=== PATIENT | female | born 1940 | race Caucasian/White ===

== ENCOUNTER → 2024-06-22 14:14 | Outpatient (REF) | payer OTHER, SELFPAY | LOC: RAD 14:14 | PROVIDERS: ATTENDING PHYSICIAN Internal Medicine Cardiovascular Disease; FAMILY PHYSICIAN Family Medicine | DX: I65.29 Occlusion and stenosis of unspecified carotid artery (principal) | CPT/HCPCS: 93880 ==

== ENCOUNTER → 2024-06-27 10:09 | Outpatient (REF) | payer MEDICARE, SELFPAY | LOC: RAD 10:09 | PROVIDERS: ATTENDING PHYSICIAN Psychiatry & Neurology Neurology; FAMILY PHYSICIAN Family Medicine | DX: M54.12 Radiculopathy, cervical region (principal) | CPT/HCPCS: 72050 ==

== ENCOUNTER → 2024-07-07 09:01 | Outpatient (REF) | payer OTHER, SELFPAY | LOC: RCS 09:01 | PROVIDERS: ATTENDING PHYSICIAN Internal Medicine Cardiovascular Disease; FAMILY PHYSICIAN Family Medicine | DX: I25.2 Old myocardial infarction (principal); R94.31 Abnormal electrocardiogram [ECG] [EKG] | CPT/HCPCS: 93306 ==

== ENCOUNTER → 2025-07-04 12:13 | Outpatient (REF) | payer OTHER, SELFPAY | LOC: RCS 12:13 | PROVIDERS: ATTENDING PHYSICIAN Internal Medicine Cardiovascular Disease; FAMILY PHYSICIAN Family Medicine | DX: I47.19 Other supraventricular tachycardia (principal); I48.0 Paroxysmal atrial fibrillation; R94.31 Abnormal electrocardiogram [ECG] [EKG] | CPT/HCPCS: 93306; Q9950 ==

== ENCOUNTER 2025-09-02 18:06 | Emergency (ER) | payer OTHER, SELFPAY ==
[2025-09-02 18:11] VITALS: BP 141/93
[2025-09-02 18:52] VITALS: BP 129/70
[2025-09-02 19:00] VITALS: BP 122/64
--- NOTE | 2025-09-02 19:12 | ED.GENMED ---
History of Present Illness
<Casandra Howell MD, Resident - Last Filed: 09/02/25 22:05>
General
Chief Complaint: Nose Bleed
Source: patient
Time Seen by Provider: 09/02/25 19:05
History of Present Illness
History of Present Illness:
Kesha and 85-year-old female,with PMH of atrial fibrillation,CAD,HTN who presents to the ER accompanied by her and daughter for nosebleed.
She does use xarelto and Aspirin chronically , 2 weeks ago she had profuse bleeding from her left nostril, it was cauterized by ENT about 12 days ago, she has had on and off drops of blood from the nose but this afternoon, blood started pouring out
from her nostrils L>R. She was given a nose clip by one of the nurses in her building and that has helped control the bleeding. Currently she is not bleeding actively and the clip is in place.Recently turned on heat for winter.
Denies any lightheadedness or dizziness
Here for further evaluation
Past History
<Casandra Howell MD, Resident - Last Filed: 09/02/25 22:05>
Past History
ED Past Medical History: Arrthythmia, CAD, HTN and Other (chronic anticoagulant use)
Social History
Alcohol: Occasional
Drug: None
Employment: Retired
Review of Systems
<Casandra Howell MD, Resident - Last Filed: 09/02/25 22:05>
Review of Systems
All Other Systems: ROS reviewed and negative except as documented in HPI and ROS
Phy Exam
<Casandra Howell MD, Resident - Last Filed: 09/02/25 22:05>
General Physical Exam
General Presentation: well appearing and no apparent distress
General age: appears stated age
General Skin: warm and dry
General Habitus: normal
General Mental: alert
General Hydration: appears well hydrated
ENT Exam
ENT Exam: normocephalic and other
Additional ENT: Nasal clip in place
Cardiovascular Exam
Cardiovascular Exam: regular rate/rhythm, no edema, no gallop, no murmur and normal peripheral pulses
Pulmonary Exam
Pulmonary Exam: lungs clear, no respiratory distress, no rales and no rhonchi
Gastrointestinal Exam
Gastrointestinal Exam: normal bowel sounds, non tender and soft
Neurological Exam
Neurological Exam: alert, oriented x3 and no motor deficits
Musculoskeletal Exam
Musculoskeletal Exam: full ROM
Psychiatric Exam
Psychiatric Exam: normal mood/affect
Course
<Casandra Howell MD, Resident - Last Filed: 09/02/25 22:05>
Orders/Labs/Results
Orders:
Orders
09/02/25 19:36
CBC/With Diff [Complete Blood Count/With Diff] Urgent
Comprehensive Metabolic Panel Urgent
PT/INR [Prothrombin Time] Urgent
PTT Urgent
Abnormal Lab Results
09/02/25
19:36
WBC 4.6 L 10^3/uL
(4.8-10.8)
Absolute Lymphs (auto) 1.0 L 10^3/uL
(1.2-3.4)
Immature Gran % 0.9 H %
(0-0.5)
Monocytes % 10.8 H %
(1.7-9.3)
PT 28.2 H Sec
(11.4-14.6)
APTT 41.2 H Sec
(23.4-35.0)
BUN 21 H mg/dl
(7-17)
Glucose 103 H mg/dl
(70-99)
Total Protein 5.8 L g/dl
(6.3-8.2)
09/02/25 19:36
09/02/25 19:36
Vital Signs
Initial and Last Documented VS:
Initial Vital Signs
Temp Pulse Resp BP Pulse Ox
98.2 F 75 16 141/93 100
09/02/25 18:11 09/02/25 18:11 09/02/25 18:11 09/02/25 18:11 09/02/25 18:11
Last Documented Vital Signs
Temp Pulse Resp BP Pulse Ox
98.2 F 75 16 129/70 100
09/02/25 18:11 09/02/25 18:11 09/02/25 18:11 09/02/25 20:00 09/02/25 19:19
[place];Gama Simms, DO - Last Filed: 09/02/25 19:51>
Orders/Labs/Results
Orders:
Orders
09/02/25 19:36
CBC/With Diff [Complete Blood Count/With Diff] Urgent
Comprehensive Metabolic Panel Urgent
PT/INR [Prothrombin Time] Urgent
PTT Urgent
Abnormal Lab Results
09/02/25
19:36
WBC 4.6 L 10^3/uL
(4.8-10.8)
Absolute Lymphs (auto) 1.0 L 10^3/uL
(1.2-3.4)
Immature Gran % 0.9 H %
(0-0.5)
Monocytes % 10.8 H %
(1.7-9.3)
PT 28.2 H Sec
(11.4-14.6)
APTT 41.2 H Sec
(23.4-35.0)
BUN 21 H mg/dl
(7-17)
Glucose 103 H mg/dl
(70-99)
Total Protein 5.8 L g/dl
(6.3-8.2)
09/02/25 19:36
09/02/25 19:36
Vital Signs
Initial and Last Documented VS:
Initial Vital Signs
Temp Pulse Resp BP Pulse Ox
98.2 F 75 16 141/93 100
09/02/25 18:11 09/02/25 18:11 09/02/25 18:11 09/02/25 18:11 09/02/25 18:11
Last Documented Vital Signs
Temp Pulse Resp BP Pulse Ox
98.2 F 75 16 129/70 100
09/02/25 18:11 09/02/25 18:11 09/02/25 18:11 09/02/25 20:00 09/02/25 19:19
<Casandra Howell MD, Resident - Last Filed: 09/02/25 22:05>
MDM/Problems Addressed
Differential Diagnosis Includes:
Nose bleed secondary to dryness/lack of humidification
MDM/Problems Addressed:
34 a pleasant 85-year-old female who is here with nosebleeds, which has been occurring for the last couple of weeks, s/p cauterization by ENT 12 days ago
Recently turned heat in her home, does use Xarelto and aspirin
Blood counts look great, CMP fine, INR within therapeutic range
Dried blood in nostrils with no active bleeding
Advised her daily use Polysporin to help keep her nostrils moist and avoid scab formation that could bleed
Also advised to use humidifier at home to keep moisture in the air
Reassured and discharged patient
<Casandra Howell MD, Resident - Last Filed: 09/02/25 22:05>
*Pulse Oximetry
SaO2: 100
Oxygen Mode of Delivery: Room air
Patient hypoxic: no
*Critical Care Note
Total Time (30-74mins, 75-104mins- exclusive of procedures): Not Applicable
ED Attending Note
<Casandra Howell MD, Resident - Last Filed: 09/02/25 22:05>
-
Portions of this chart may have been created with voice recognition software.� Occasional wrong word or��sound alike� substitutions may have occurred due to the inherent limitations of voice recognition software.
<Gama Simms, DO - Last Filed: 09/02/25 19:51>
ED Attending Note
Patient seen and examined by attending physician: Yes
I performed a history and physical exam of patient and discussed management with resident, I reviewed resident's note and agree with documented findings and plan of care.: Yes
ED Attending Note:
85-year-old female presents with nosebleed seen by Dr. Chua 2 weeks ago cauterized has been slow and intermittent since then today a little bit heavier, takes Xarelto for stroke prophylaxis never had a stroke, here no active bleeding did recently
have the air return on her room will provide a nose clip to go home with, recommend Neosporin, and a humidifier,
Discharge Plan
Departure
Patient Disposition: Home (Routine Discharge)
Date of Disposition: 09/02/25
Time of Disposition: 20:12
Patient with high blood pressure during this ER visit?: No
Discharge Problem:
Nasal bleeding
Instructions: Nosebleeds (DC)
Prescriptions:
No Action
Xarelto 20 mg Tablet
20 mg PO DAILY
Referrals:
Trace Griffiths MD [Family Provider, Family Practice]
Activity Restrictions/Additional Instructions:
USE HUMIDIFIER AT HOME
USE POLYSPORIN OINTMENT TO KEEP THE NOSTRILS MOIST
FOLLOW UP WITH PCP NEEDED
PLEASE RETURN TO ER IN CASE OF SEVERE OR PERSISTENT BLEEDING AND ANY WORRISOME SIGNS LIKE DIZZINESS LIGHTHEADEDNESS ETC
Interventions
Interventions:
*Risk Screen - Suicide Last Done: 09/02/25 18:11
*General Assessment Last Done: 09/02/25 19:04
*Neglect/Abuse Screening Last Done: 09/02/25 18:11
*ED- Fall Risk Assessment Last Done: 09/02/25 19:04
*ED COVID-19 Vaccine History Last Done: 09/02/25 19:04
*ED Influenza Vaccine History Last Done: 09/02/25 19:04
*Nursing Disposition Last Done: 09/02/25 21:02
ED-EENT Assessment Last Done: 09/02/25 19:05
Discharge Date and Time
Discharge Date/Time: 09/02/25 21:03
Print Language: SINHALA
[2025-09-02 19:42] LABS: Hematocrit 37.3 % (37.0-47.0); Hemoglobin 12.3 g/dL (12.0-16.0); Mean Corp Hgb Conc. 33.0 g/dL (33.0-37.0); Mean Corpuscular Volume 88.2 fL (81.0-99.0); Nucleated Red Blood Cells % 0 %; Platelet Count 222 10^3/uL (130-400); Red Cell Dist. Width 13.5 % (11.5-14.5)
[2025-09-02 19:52] LABS: INR 2.62; PT 28.2 Sec (11.4-14.6)
[2025-09-02 19:53] LABS: APTT 41.2 Sec (23.4-35.0)
[2025-09-02 20:00] VITALS: BP 129/70
[2025-09-02 20:03] LABS: ALT (SGPT) 19 U/L (0-35); AST (SGOT) 28 U/L (14-36); Albumin 3.6 g/dl (3.5-5.0); Alkaline Phosphatase 105 U/L (38-126); Blood Urea Nitrogen 21 mg/dl (7-17); Calcium 8.6 mg/dl (8.4-10.2); Carbon Dioxide 30 mmol/L (22-30); Chloride 105 mmol/L (98-107); Glucose 103 mg/dl (70-99); Potassium 3.6 mmol/L (3.5-5.1); Sodium 137 mmol/L (135-145); Total Protein 5.8 g/dl (6.3-8.2); eGFR > 60.00
== END 2025-09-02 21:03 | disposition home or self-care (01) ==
LOC: EMR 18:06
PROVIDERS: EMERGENCY PHYSICIAN Emergency Medicine; FAMILY PHYSICIAN Family Medicine
DX: R04.0 Epistaxis (principal); I25.10 Atherosclerotic heart disease of native coronary artery without angina pectoris; I10 Essential (primary) hypertension; I48.91 Unspecified atrial fibrillation; Z79.01 Long term (current) use of anticoagulants; Z79.82 Long term (current) use of aspirin
CPT/HCPCS: 99283; 80053; 85025; 85610; 85730